=== PATIENT | male | born 1995 | race African-American/Black ===

== ENCOUNTER 2017-08-22 00:22 | Emergency (ER) | payer BC ==
[2017-08-22 00:43] LABS: #Basophils 0.1 thou/uL (0.0-0.2); #Eosinphils 0.5 thou/uL (0.0-0.7); #Monocytes 0.4 thou/uL (0.11-0.59); #Neutrophils 2.3 thou/uL (1.40-6.50); %Basophils 1.3 % (0.0-1.0); %Eosinophils 8.2 % (0.0-10.0); %Lymphocytes 47.9 % (21.0-51.0); %Monocytes 6.3 % (0.0-10.0); Hematocrit 47.9 % (42.0-52.0); Mean Platelet Volume 6.7 fL (7.4-10.4); Red Blood Cell (RBC) Count 5.24 mill/uL (4.70-6.10); White Blood Cell (WBC) Count 6.2 thou/uL (4.8-10.8)
[2017-08-22 01:03] LABS: ALT (SGPT) 12 U/L (8-55); AST (SGOT) 23 U/L (5-34); Alkaline Phosphatase 70 U/L (40-150); Anion Gap 11 mmol/L (10-20); BUN (Urea Nitrogen) 12 mg/dL (8.9-20.6); Bilirubin, Total 0.5 mg/dL (0.2-1.2); CK (CPK) 376 U/L (30-200); Calc. Creatinine Clearance 0 mL/min (70-130); Carbon Dioxide 30 mmol/L (22-29); Chloride 104 mmol/L (98-107); Estimated GFR-MDRD Greater than 90; Globulin 3.8 g/dL (2.4-3.5); Protein, Total 8.2 g/dL (6.0-8.3)
[2017-08-22 01:10] LABS: Troponin I Less than 0.010 ng/mL (< 0.028)
--- NOTE | 2017-08-22 10:37 | RAD ---
PORTABLE CHEST: HISTORY: Chest pain. COMPARISON: 06/16/10 exam. FINDINGS: Heart size and mediastinum are within normal limits. The lungs are clear of infiltrative process. IMPRESSION: No active intrathoracic disease. POS: [facility]
--- NOTE | 2017-08-28 15:36 | EKG ---
Test Reason : Blood Pressure : / mmHG Vent. Rate : 057 BPM Atrial Rate : 057 BPM P-R Int : 146 ms QRS Dur : 088 ms QT Int : 394 ms P-R-T Axes : 023 048 024 degrees QTc Int : 383 ms Sinus bradycardia Minimal voltage criteria for LVH, may be normal variant ST elevation, consider early repolarization Borderline ECG Confirmed by OSITO BROWN D.O. ([id number]), supervising editor trailer JUAN STEVE ([id number]) on 08/28/2017 3:35:30 PM Referred By: Confirmed By:OSITO BROWN D.O.
== END 2017-08-22 02:29 | disposition left against medical advice (07) ==
LOC: ERS 00:22
DX: Z53.21 Procedure and treatment not carried out due to patient leaving prior to being seen by health care provider (principal)
CPT/HCPCS: 36415; 71010; 80053; 82553; 84484; 85025; 93005

== ENCOUNTER 2018-07-24 03:01 | Emergency (ER) | payer BC ==
[2018-07-24 03:45] LABS: #Eosinphils 0.3 thou/uL (0.0-0.7); #Lymphocytes 2.2 thou/uL (1.20-3.40); #Monocytes 0.3 thou/uL (0.11-0.59); #Neutrophils 2.4 thou/uL (1.40-6.50); %Basophils 0.8 % (0.0-1.0); %Eosinophils 6.7 % (0.0-10.0); %Monocytes 6.4 % (0.0-10.0); %Neutrophils 45.1 % (42.0-75.0); Hemoglobin 15.3 g/dL (14.0-18.0); Mean Corpuscular HGB CONC 32.7 g/dL (32.0-36.0); Mean Corpuscular Hemoglobin 29.4 pg (27.0-31.0); Mean Platelet Volume 6.7 fL (7.4-10.4); Platelet Count 293 thou/uL (130-400); RBC Distribution Width 12.5 % (11.5-14.5); Red Blood Cell (RBC) Count 5.19 mill/uL (4.70-6.10); White Blood Cell (WBC) Count 5.2 thou/uL (4.8-10.8)
[2018-07-24] MEDS ORDERED: Ketorolac Tromethamine 30 MG/ML VIAL ONE (03:46)
[2018-07-24 04:04] LABS: ALT (SGPT) 15 U/L (8-55); AST (SGOT) 20 U/L (5-34); Albumin 4.6 g/dL (3.5-5.0); Alkaline Phosphatase 55 U/L (40-150); Anion Gap 13 mmol/L (10-20); BUN (Urea Nitrogen) 13 mg/dL (8.9-20.6); Bilirubin, Total 0.5 mg/dL (0.2-1.2); Calc. Creatinine Clearance 0 mL/min (70-130); Calcium 9.8 mg/dL (7.8-10.44); Carbon Dioxide 26 mmol/L (22-29); Chloride 103 mmol/L (98-107); Estimated GFR-MDRD Greater than 90; Globulin 3.3 g/dL (2.4-3.5); Glucose 96 mg/dL (70-105); Potassium 3.9 mmol/L (3.5-5.1); Protein, Total 7.9 g/dL (6.0-8.3); Sodium 138 mmol/L (136-145)
--- NOTE | 2018-07-24 11:07 | CT ---
PRELIMINARY REPORT/[facility]/EMERGENTY AFTER-HOURS PROCEDURE CT Maxillofacial Without Intravenous Contrast, Sinus EXAM DATE/TIME: 07/24/2018 3:40 AM CLINICAL HISTORY: 22 years old, male; Pain; Nose pain; Patient HX: Er3, no prior, left nasal swelling. M22 presents to ed C/O l nasal pain. PT reports his nose is running, but he is not able to blow his nose on the l jessica e. PT denies any trauma or falls TECHNIQUE: CT Maxillofacial without intravenous contrast. Focus on the sinuses. COMPARISON: No relevant prior studies available. FINDINGS: Sinuses: Unremarkable. No air-fluid levels. Bones/joints: There are irregularities of the nasal bones with subtle indentation on the left. Cannot exclude fracture of indeterminate age. Soft tissues: Unremarkable. IMPRESSION: Irregularities of the nasal bones with subtle indentation on the left. Cannot exclude fracture of ind eterminate age. Thank you for allowing us to participate in the care of your patient. Dictated and Authenticated by: Elizabeth Bhat DO 07/24/2018 4:53 AM Central Time ([place] & [place]) FINAL REPORT CT OF FACIAL BONES PERFORMED WITHOUT CONTRAST ENHANCEMENT: HISTORY: Left nasal swelling. No history of trauma. FINDINGS: The zygomatic arches are intact. There is some slight irregularity to the nasal bone which is probab ly the sequelae of an old injury. This does appear acute. There is mucosal change which is minimal within the maxillary and bilateral ethmoid air cells. There are no air fluid levels. The mandible appears intact and condyles are in normal position. IMPRESSION: 1. Minimal irregularity to the nasal bone which is probably the sequelae of an old injury. 2. Minimal bilateral ethmoid and maxillary sinus mucosal change. 3. This report is in agreement with the temporary report issued by [facility]. POS: [facility]
== END 2018-07-24 05:40 | disposition home or self-care (01) ==
LOC: ERS 03:01
DX: R22.0 Localized swelling, mass and lump, head (principal); F41.9 Anxiety disorder, unspecified; I10 Essential (primary) hypertension
CPT/HCPCS: 36415; 70486; 80053; 85025; 96361; 96374; J1885

== ENCOUNTER 2021-01-21 09:18 | Emergency (ER) | payer BC ==
[2021-01-21] MEDS ORDERED: Iopamidol-370 76% 500 ML 1 ML ONE (09:41)
[2021-01-21] MEDS ORDERED: Acetaminophen 500 MG TAB ONE (10:48)
[2021-01-21 10:49] LABS: #Basophils 0.1 thou/uL (0.0-0.2); #Eosinphils 0.3 thou/uL (0.0-0.7); #Lymphocytes 1.9 thou/uL (1.20-3.40); #Monocytes 0.5 thou/uL (0.11-0.59); #Neutrophils 2.4 thou/uL (1.40-6.50); %Basophils 1.7 % (0.0-1.0); %Eosinophils 5.7 % (0.0-10.0); %Lymphocytes 37.5 % (21.0-51.0); %Monocytes 9.4 % (0.0-10.0); %Neutrophils 45.8 % (42.0-75.0); Hemoglobin 16.3 g/dL (14.0-18.0); Mean Corpuscular HGB CONC 32.3 g/dL (32.0-36.0); Mean Corpuscular Hemoglobin 28.9 pg (27.0-31.0); Mean Corpuscular Volume 89.7 fL (78.0-98.0); Mean Platelet Volume 7.2 fL (7.4-10.4); Platelet Count 263 thou/uL (130-400); RBC Distribution Width 12.6 % (11.5-14.5); Red Blood Cell (RBC) Count 5.62 mill/uL (4.70-6.10); White Blood Cell (WBC) Count 5.2 thou/uL (4.8-10.8)
[2021-01-21 11:10] LABS: ALT (SGPT) 33 U/L (8-55); AST (SGOT) 29 U/L (5-34); Albumin 4.6 g/dL (3.5-5.0); Alkaline Phosphatase 81 U/L (40-110); Anion Gap 12 mmol/L (10-20); BUN (Urea Nitrogen) 11 mg/dL (8.9-20.6); Bilirubin, Total 0.7 mg/dL (0.2-1.2); Calc. Creatinine Clearance 0 mL/min (70-130); Calcium 10.3 mg/dL (7.8-10.44); Carbon Dioxide 27 mmol/L (22-29); Chloride 103 mmol/L (98-107); Globulin 3.8 g/dL (2.4-3.5); Glucose 96 mg/dL (70-105); Potassium 3.9 mmol/L (3.5-5.1); Protein, Total 8.4 g/dL (6.0-8.3); Sodium 138 mmol/L (136-145)
== END 2021-01-21 12:35 | disposition home or self-care (01) ==
LOC: ERS 09:18
DX: K92.1 Melena (principal); R10.30 Lower abdominal pain, unspecified; I10 Essential (primary) hypertension
CPT/HCPCS: 74177; 80053; 82274; 85025; Q9967